=== PATIENT | female | born 1965 | race Hispanic/Latino ===

== ENCOUNTER → 2021-11-04 | Outpatient (CLI) | payer OTHER | END | disposition home or self-care (01) | LOC: RAH 07:51 | PROVIDERS: ATTEND Internal Medicine Gastroenterology | DX: K70.30 Alcoholic cirrhosis of liver without ascites (principal); R93.3 Abnormal findings on diagnostic imaging of other parts of digestive tract | CPT/HCPCS: 76700; 93975 ==

== ENCOUNTER → 2022-02-04 | Outpatient (CLI) | payer OTHER | END | disposition home or self-care (01) | LOC: RAH 07:56 | PROVIDERS: ATTEND Internal Medicine Gastroenterology | DX: K70.30 Alcoholic cirrhosis of liver without ascites (principal) | CPT/HCPCS: 76700 ==

== ENCOUNTER 2024-09-11 07:01 | Day surgery (SDC) | payer MEDICARE ==
[~2024-09-11] VITALS: Ht 167.6 cm; Wt 90.7 kg
[2024-09-11] VITALS (10 sets, daily range): BP systolic 89–123; BP diastolic 53–65; PULSE 63–69; RESP 14–18; TEMP 97.1–97.6
[2024-09-11] MEDS: 0.9%NACL 1000ML 1,000 ML IV ONE (09:10)
[2024-09-11] MEDS ORDERED: SUCR1TAB2 PO (09:47)
[2024-09-11] MEDS ORDERED: BUPR75TA8 PO (09:47)
[2024-09-11] MEDS ORDERED: TRAZ-187 PO (09:47)
[2024-09-11] MEDS ORDERED: RIFA550T PO (09:47)
[2024-09-11] MEDS ORDERED: ONDA-243 PO (09:47)
[2024-09-11] MEDS ORDERED: ALBU18HF7 IH (09:47)
[2024-09-11] MEDS ORDERED: FURO40TA5 PO (09:47)
[2024-09-11] MEDS ORDERED: URSO250T12 PO (09:47)
[2024-09-11] MEDS ORDERED: OMEP40CA21 PO (09:47)
[2024-09-11] MEDS ORDERED: LEVO150C5 PO (09:47)
[2024-09-11] MEDS ORDERED: HYDR50SO PO (09:47)
[2024-09-11] MEDS ORDERED: TIRZ2.5P SQ (09:47)
[2024-09-11] MEDS ORDERED: FLUT15.845 NS (09:47)
[2024-09-11] MEDS ORDERED: SERT-440 PO (09:47)
[2024-09-11] MEDS ORDERED: PARO-37 PO (09:47)
[2024-09-11] MEDS ORDERED: FOLIC ACID PO (09:47)
[2024-09-11] MEDS ORDERED: NORT10CA2 PO (09:47)
[2024-09-11] MEDS ORDERED: SPIR100T5 PO (09:47)
[2024-09-11] MEDS ORDERED: proPOFol 10 MG/ML 20ML VIAL IV ONE (10:01)
[2024-09-12] MEDS ORDERED: CEPH500B PO (09:22)
== END 2024-09-11 11:15 | disposition home or self-care (01) ==
LOC: DAH 07:01
PROVIDERS: ATTEND Internal Medicine Gastroenterology
DX: K74.3 Primary biliary cirrhosis (principal); K76.6 Portal hypertension; I85.00 Esophageal varices without bleeding; K31.89 Other diseases of stomach and duodenum; K29.50 Unspecified chronic gastritis without bleeding; K22.2 Esophageal obstruction; K31.7 Polyp of stomach and duodenum; K72.90 Hepatic failure, unspecified without coma; K30 Functional dyspepsia; E11.9 Type 2 diabetes mellitus without complications; E03.9 Hypothyroidism, unspecified; F41.9 Anxiety disorder, unspecified; Z86.2 Personal history of diseases of the blood and blood-forming organs and certain disorders involving the immune mechanism; Z79.899 Other long term (current) drug therapy; Z90.710 Acquired absence of both cervix and uterus; Z98.891 History of uterine scar from previous surgery
CPT/HCPCS: 82948 ×2; 43239; 43251; J7030; J2704; A4620; A4215 ×2; A4223; A4222; A4221; A4663; A4606; J3490

== ENCOUNTER 2024-09-12 04:17 | Emergency (ER) | payer MEDICARE, MEDICAID ==
[~2024-09-12] VITALS: Ht 167.6 cm; Wt 90.7 kg
[~2024-09-12 04:17] MED LIST: ALBU18HF7 IH; BUPR75TA8 PO; FLUT15.845 NS; FOLIC ACID PO; FURO40TA5 PO; HYDR50SO PO; LEVO150C5 PO; NORT10CA2 PO; OMEP40CA21 PO; ONDA-243 PO; PARO-37 PO; RIFA550T PO; SERT-440 PO; SPIR100T5 PO; SUCR1TAB2 PO; TIRZ2.5P SQ; TRAZ-187 PO; URSO250T12 PO
--- NOTE | 2024-09-12 05:11 | ERN ---
General Chief Complaint: Abdominal Pain Stated Complaint: C/O ABD PAIN WITH N X V Time Seen by MD: 05:05 History of Present Illness Initial Comments Patient is a 59-year-old female who had an EGD yesterday morning and has since then had pain nausea and vomiting. In addition she has chills and has not passed any gas since the procedure. Timing/Duration: 4-6 hours Allergies: Coded Allergies: No Known Drug Allergies (Unverified Allergy, Unknown, 09/04/24) Home Meds Reported Medications Tirzepatide (Mounjaro) 2.5 Mg/0.5 Ml Pen.injctr, 2.5 MG SQ QWEEK 09/11/24 Trazodone HCl (Trazodone HCl) 100 Mg Tablet, 100 MG PO HS, TAB 09/11/24 Ondansetron (Ondansetron Odt) 4 Mg Tab.rapdis, 4 MG PO AD, TAB 09/11/24 Levothyroxine Sodium (Levothyroxine) 150 Mcg Capsule, 150 MCG PO DAILY, CAP 09/11/24 Spironolactone (Spironolactone) 100 Mg Tablet, 100 MG PO DAILY, TAB 09/11/24 [Folic Acid] No Conflict Check, 1 MG PO DAILY 09/11/24 Rifaximin (Xifaxan) 550 Mg Tablet, 550 MG PO BID, TAB 09/11/24 Furosemide (Furosemide) 40 Mg Tablet, 40 MG PO DAILY, TAB 09/11/24 Hydroxyzine HCl (Hydroxyzine HCl) 50 Mg/25 Ml Syrup, 50 MG PO HS, ML 09/11/24 Nortriptyline HCl (Nortriptyline HCl) 10 Mg Capsule, 10 MG PO HS, CAP 09/11/24 Omeprazole (Omeprazole) 40 Mg Capsule.dr, 40 MG PO DAILY, CAP 09/11/24 Sertraline HCl (Sertraline HCl) 100 Mg Tablet, 100 MG PO HS, TAB 09/11/24 Ursodiol (Ursodiol) 250 Mg Tablet, 250 MG PO DAILY, TAB 09/11/24 Paroxetine HCl (Paroxetine HCl) 20 Mg Tablet, 20 MG PO DAILY, TAB 09/11/24 Albuterol Sulfate (Ventolin Hfa) 90 Mcg Hfa.aer.ad, 2 PUFF IH DAILYBKFST PRN for wheezing for 30 Days, #18 GM 0 Refills 09/11/24 Fluticasone Propionate (Fluticasone Propionate) 50 Mcg/Actuation [place].susp, 2 SPRAY NS DAILY, #16 GM 0 Refills 09/11/24 Bupropion HCl (Bupropion HCl) 75 Mg Tablet, 75 MG PO BID, TAB 09/11/24 Sucralfate (Sucralfate) 1 Gram Tablet, 1 GM PO TID, TAB 09/11/24 Past Medical History Past Medical History: Anemia, Diabetes-Type II, Hypertension, Other Medical History Other: CIRRHOSIS OF LIVER Past Surgical History: Other Constitutional: (+) chills EENTM: (-) eye pain, (-) blurred vision, (-) tearing, (-) double vision, (-) ear pain, (-) ear discharge, (-) nose pain, (-) nose congestion, (-) throat pain, (-) Throat swelling, (-) mouth pain, (-) tooth pain, (-) mouth swelling, (-) other documentation Respiratory: (-) cough, (-) orthopnea, (-) short of breath, (-) stridor, (-) wheezing, (-) other documentation Cardiovascular: (-) chest pain, (-) edema, (-) palpitations, (-) syncope, (-) dyspnea on exertion, (-) other documentation Gastrointestinal/Abdominal: (+) nausea, (+) vomiting Musculoskeletal: (-) Neck pain, (-) back pain, (-) Flank Pain, (-) joint pain, (-) joint swelling, (-) muscle pain, (-) muscle stiffness, (-) gout, (-) other documentation Skin: (-) laceration, (-) contusion, (-) abrasion, (-) abscess, (-) rash, (-) change in color, (-) change in hair, (-) change in nails, (-) diaphoresis, (-) dryness, (-) other documentation Physical Exam Physical Exam Dictation Patient is sitting on the edge of the bed clutching her stomach and crying with visible tears. General Appearance: (+) moderate distress Orientation: (+) alert Eye: bilateral eye normal inspection, bilateral eye PERRL, bilateral eye EOMI Ear, Nose, Throat: (+) hearing grossly normal, (+) normal ENT inspection, (+) moist mucous membraine Neck: (+) normal inspection, (+) supple, (+) no JVD Respiratory: (+) chest non-tender, (+) lungs clear, (+) well ventilated Heart: (+) no gallop, (+) tachycardia Vascular: (+) no edema, (+) normal peripheral pulse Gastrointestinal: (+) soft, (+) distended, (+) tender, (+) bowel sound absent Results Laboratory and Microbiology Lab and Micro Result Laboratory Tests Test 09/12/24 04:49 09/12/24 05:15 White Blood Count 7.8 K/uL (4.8-10.8) Red Blood Count 4.01 MIL/uL (4.00-5.50) Hemoglobin 11.3 g/dL (12.0-16.0) L Hematocrit 34.8 % (36-48) L Mean Corpuscular Volume 86.8 fL (79-99) Mean Corpuscular Hemoglobin 28.2 pg (27.0-33.0) Mean Corpuscular Hemoglobin Concent 32.5 g/dL (32.0-36.0) Red Cell Distribution Width 15.8 % (11.0-15.5) H Platelet Count 165 K/uL (130-400) Mean Platelet Volume 10.8 fL (7.5-10.5) H Immature Granulocyte % (Auto) 0.3 % (0-1) Neutrophils (%) (Auto) 80.6 % (40.0-77.0) H Lymphocytes (%) (Auto) 13.6 % (21.0-51.0) L Monocytes (%) (Auto) 4.7 % (3.0-13.0) Eosinophils (%) (Auto) 0.3 % (0.0-8.0) Basophils (%) (Auto) 0.5 % (0.0-5.0) Neutrophils # (Auto) 6.3 K/uL (1.8-7.7) Lymphocytes # (Auto) 1.1 K/uL (1.0-4.8) Monocytes # (Auto) 0.4 K/uL (0.1-1.0) Eosinophils # (Auto) 0.02 K/uL (0.00-0.70) Basophils # (Auto) 0.04 K/uL (0.00-0.20) Absolute Immature Granulocyte (auto 0.02 K/uL (0-1) Nucleated Red Blood Cells 0.0 % (0.0-0.19) Sodium Level 137 mmol/L (136-145) Potassium Level 4.1 mmol/L (3.5-5.1) Chloride Level 101 mmol/L (101-111) Carbon Dioxide Level 23 mmol/L (21-32) Blood Urea Nitrogen 11 mg/dL (7-18) Creatinine 0.8 mg/dL (0.5-1.0) Glomerular Filtration Rate Calc 84 mL/min (>90) Random Glucose 111 mg/dL (70-105) H Total Calcium 9.3 mg/dL (8.5-10.1) Total Bilirubin 1.0 mg/dL (0.2-1.0) Aspartate Amino Transf (AST/SGOT) 44 U/L (10-37) H Alanine Aminotransferase (ALT/SGPT) 24 U/L (12-78) Alkaline Phosphatase 163 U/L (50-136) H Total Protein 9.5 g/dL (6.0-8.3) H Albumin 3.9 g/dL (3.5-5.0) Urine Color LIGHT-YELLOW (YELLOW) Urine Appearance CLEAR (CLEAR) Urine pH 8.0 (5.0-8.0) Urine Specific [place] 1.016 (1.001-1.031) Urine Protein NEGATIVE mg/dL (NEGATIVE) Urine Glucose (UA) NEGATIVE mg/dL (NEGATIVE) Urine Ketones NEGATIVE mg/dL (NEGATIVE) Urine Occult Blood NEGATIVE (NEGATIVE) Urine Nitrate NEGATIVE (NEGATIVE) Urine Bilirubin NEGATIVE mg/dL (NEGATIVE) Urine Urobilinogen 0.2 mg/dL (0.2-1.0) Urine Leukocyte Esterase 75 Sandra/uL (NEGATIVE) H Urine RBC 0-1 /HPF (0-1) Urine WBC 6-10 /HPF (0-1) H Urine Squamous Epithelial Cells MOD /HPF (0-2) Urine Bacteria RARE /HPF (None Seen) Labs Reviewed?: Yes EKG/XRAY/US/CT/MRI CT Scan Comment [facility] [address] [place], [place] [id number] IMAGING REPORT Signed PATIENT: JALEN BENOIT MR#: [id number] : 1965 SEX: F AGE: 59 LOCATION: [facility] ORDER 5 STATUS: REG REPORT#: [id number] SERVICE 4 REASON: pain post EGD ORDERING PHYSICIAN: ATUL SCHAEFER MD PROCEDURE: ABD PEL W - CT ABDOMEN/PELVIS W/CONTRAST CT ABDOMEN/PELVIS W/CONTRAST HISTORY: Post EGD pain COMPARISON: None TECHNIQUE: Multiple sequential axial images of the abdomen and pelvis were obtained from the dome of the diaphragm through symphysis pubis. Patient was not given contrast through intravenous route. Oral contrast was not given. FINDINGS: No pleural effusion is seen bilaterally. There is no evidence of parenchymal disease or pulmonary nodule of the visualized lower lungs. Degenerative changes of the thoracolumbar spine are present. The heart is not enlarged. Cirrhotic changes of the liver are noted. Liver is enlarged measuring 19 cm. Spleen is enlarged measuring 15 cm nodular appearance of liver is seen. There are abdominal varices. Gallbladder wall is mildly thickened. There is gastric wall thickening may be related to underlying portal hypertension versus gastritis. There are mild small bowel dilatation with wall thickening. The liver, spleen, adrenal glands and pancreas are unremarkable. There is no evidence of hydronephrosis bilaterally. No evidence of renal stone is seen. Fecal material is seen in the colon. There are normal size retroperitoneal and mesenteric lymph nodes. Tiny ascites is seen. Atherosclerotic changes are present. Uterus has been Pelvic sidewalls are symmetric bilaterally. Bladder is well distended without wall thickening. IMPRESSION: 1. Cirrhotic liver. Hepatosplenomegaly. Abdominal varices. Findings may be related to portal hypertension. There are gallbladder wall thickening, gastric wall thickening and small bowel wall thickening may be related to poor ejection. Clinical correlation is tiny ascites is seen. CT was performed with one or more following dose reduction techniques: automated exposure control, adjustment of the mA and kv according to patient's size, or use of a iterative reconstruction technique. DICTATED BY: PETER MENESES MD DATE: 09/12/2434 ELECTRONICALLY SIGNED BY: PETER MENESES MD DATE: 09/12/24841 [facility] Patient's abdominal pain right after an EGD could be due to over insufflation, abdominal perforation, coincidental UTI, stomach bug, heartburn. I will start with a chemistry panel, CBC, UA, upright KUB. I may need to do a CT abdomen. Also will give her some pain medications. KUB was unrevealing there are no large distended loops of bowel in the stomach is decompressed. Therefore something else besides residual air must be causing patient's pain. I will order a CT scan of her abdomen and pelvis with IV contrast. Of note patient also has UTI. I will give her a single dose of Zosyn to cover any potential abdominal catastrophe. MDM: Differential diagnosis: Rationale: Tests considered and ordered secondary to shared decision making include: Previous outside records reviewed: Old ER visits. Risk of complication and/or morbidity or mortality of patient management: None Patient is a 59-year-old female coming in to be evaluated for abdominal discomfort and nauseousness. Patient does has a history of liver cirrhosis laboratory workup disclose a urinary tract infection. CT of the abdomen disclose liver cirrhosis which patient was aware of. Patient has felt much better since being in [place]. She states that the fluids and the medication that has helped her. Patient will be discharged in stable condition with a diagnosis of history of liver cirrhosis and UTI. ED Course Orders Procedure Category Date Status Time Abd 1vw RAD 09/12/24 Taken 05:05 12 Lead Ekg Tracing- EKG 09/12/24 Complete Technical 05:05 Cbc With Differential LAB 09/12/24 Complete 05:05 Comprehensive LAB 09/12/24 Complete Metabolic Panel 05:05 Urinalysis Profile LAB 09/12/24 Complete 05:05 Ketorolac PHA 09/12/24 Complete Tromethamine 30mg/Ml 05:30 Culture Urine RONDA 09/12/24 In Process 05:30 Ct Abdomen/Pelvis CT 09/12/24 Resulted W/Contrast 06:25 Iohexol (Omnipaque) PHA 09/12/24 Complete 06:47 Zosyn 3.375gm+Ns 50ml PHA 09/12/24 Complete (Zosyn 3.375gm+Ns 07:30 Current Medications Medications (Trade) Dose Ordered Sig/Mayra Route PRN Reason Start Time Stop Time Status Last Admin Dose Admin Iohexol (Omnipaque) 35,000 mg STK-MED ONCE IV 09/12/24 06:47 09/12/24 06:47 DC Ketorolac Tromethamine (toRADol) 30 mg ONCE ONCE IVP 09/12/24 05:30 09/12/24 05:31 DC 09/12/24 05:30 Piperacillin Sod/ Tazobactam Sod (Zosyn 3.375gm+NS 50ml) 3.375 gm ONCE ONCE IV 09/12/24 07:30 09/12/24 07:31 DC 09/12/24 07:21 Vital Signs Date Time Temp Pulse Resp B/P (MAP) Pulse Ox O2 Delivery O2 Flow Rate FiO2 09/12/24 06:35 66 18 125/67 98 Room Air* 0 21 09/12/24 05:50 68 18 112/53 98 Room Air* 0 09/12/24 04:33 98.2 74 18 134/68 98 Room Air* 0 09/12/24 04:19 99.3 72 20 125/89 100 Room Air DX & DISP Disposition: Discharge Departure Impression: Primary Impression: Liver cirrhosis Additional Impression: UTI (urinary tract infection) Condition: Stable Scripts Cephalexin Monohydrate (Keflex) 500 Mg Cap 1 CAP PO BID for 10 Days, #20 CAP 0 Refills Prov: ESTHER YU MD 09/12/24 Additional Instructions: FOLLOW-UP WITH PRIMARY CARE PROVIDER IN 1 TO 2 DAYS. TAKE MEDICATIONS DIRECTED HERE IN THE EMERGENCY ROOM. OKAY TO CONTINUE HOME MEDICATIONS UNLESS OTHERWISE DISCUSSED DURING YOUR VISIT IN THE EMERGENCY ROOM TODAY. RETURN TO YOUR NEAREST EMERGENCY ROOM IF SYMPTOMS WORSEN OR IF THERE IS NO IMPROVEMENT. CALL 911 IF YOU NEED IMMEDIATE ASSISTANCE. TAKE TYLENOL [id number] NEEDED AND IF NO CONTRAINDICATIONS ARE PRESENT. INCREASE ORAL HYDRATION. A WOUND CULTURE OR URINE CULTURE WAS ORDERED HERE IN THE EMERGENCY ROOM DEPARTMENT PLEASE FOLLOW-UP WITH PRIMARY CARE PROVIDER AND ADVISE THEM TO GET REPEAT PORTS FROM OUR FACILITY. IF YOU HAD ANY RINA WRAP/SPLINTS THAT WERE APPLIED HERE, PLEASE DO NOT REMOVE THEM UNTIL YOU SEE YOUR PRIMARY CARE OR SPECIALTY. Referrals: Referrals: PARISH AVELAR MD (PCP) Time of Disposition: 09:22 ATUL SCHAEFER MD September 12, 2024 05:11 ESTHER YU MD September 12, 2024 09:09
[2024-09-12 05:16] LABS: BASOPHILS # (AUTO) 0.04 K/uL (0.00-0.20); BASOPHILS % (AUTO) 0.5 % (0.0-5.0); EOSINOPHILS # (AUTO) 0.02 K/uL (0.00-0.70); EOSINOPHILS % (AUTO) 0.3 % (0.0-8.0); HEMATOCRIT 34.8 % (36-48); IMMATURE GRANULOCYTE ABSOLUTE 0.02 K/uL (0-1); LYMPHOCYTES # (AUTO) 1.1 K/uL (1.0-4.8); LYMPHOCYTES % (AUTO) 13.6 % (21.0-51.0); MEAN CORPUSCULAR HEMOGLOBIN 28.2 pg (27.0-33.0); MEAN CORPUSCULAR HGB CONC 32.5 g/dL (32.0-36.0); MEAN CORPUSCULAR VOLUME 86.8 fL (79-99); MONOCYTES # (AUTO) 0.4 K/uL (0.1-1.0); MONOCYTES % (AUTO) 4.7 % (3.0-13.0); NEUTROPHILS # (AUTO) 6.3 K/uL (1.8-7.7); NEUTROPHILS % (AUTO) 80.6 % (40.0-77.0); PLATELET COUNT (AUTO) 165 K/uL (130-400); RED BLOOD CELL COUNT(AUTO) 4.01 MIL/uL (4.00-5.50); RED CELL DISTRIBUTION WIDTH 15.8 % (11.0-15.5); WHITE BLOOD COUNT (AUTO) 7.8 K/uL (4.8-10.8)
[2024-09-12 05:29] LABS: APPEARANCE,URINE CLEAR (CLEAR); BILIRUBIN,URINE NEGATIVE (NEGATIVE); COLOR,URINE LIGHT-YELLOW (YELLOW); GLUCOSE, URINE (UA) NEGATIVE (NEGATIVE); KETONES,URINE NEGATIVE (NEGATIVE); LEUKOCYTE ESTERASE ,URINE 75 Leu/uL (NEGATIVE); NITRATE,URINE NEGATIVE (NEGATIVE); OCCULT BLOOD,URINE NEGATIVE (NEGATIVE); PROTEIN,URINE NEGATIVE (NEGATIVE); UROBILINOGEN,URINE 0.2 mg/dL (0.2-1.0)
[2024-09-12 05:30] LABS: ADD UA MICROSCOPIC YES
[2024-09-12] MEDS: ketOROlac 30MG VIAL (30MG/ML) IVP ONE (05:30)
[2024-09-12 05:31] LABS: BACTERIA,URINE RARE /HPF (None Seen); MUCUS,URINE RARE LPF (None Seen); RBC,URINE 0-1 /HPF (0-1); SQUAMOUS EPITHELIAL CELL,UR MOD /HPF (0-2)
[2024-09-12 05:39] LABS: ALBUMIN 3.9 g/dL (3.5-5.0); CREATININE 0.8 mg/dL (0.5-1.0); POTASSIUM 4.1 mmol/L (3.5-5.1); TOTAL PROTEIN, SERUM 9.5 g/dL (6.0-8.3)
--- NOTE | 2024-09-12 06:43 | EKG ---
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
[2024-09-12] MEDS ORDERED: IOHEXOL 350 MG/ML 100ML INFUS..BTL IV ONE (06:47)
--- NOTE | 2024-09-12 07:10 | NUR ---
REPORT GIVEN TO KRISTEN RN AT THIS TIME
--- NOTE | 2024-09-12 07:10 | NUR ---
SBAR REPORT RECIEVED FROM MARIA DEL ROSARIO, PT IS AAOX4 NO DISTRESS, DAUGHTER AT BEDSIDE, PT STATES ABD PAIN IS NOW 0/10, PT RESTING COMFORTABLY
[2024-09-12] MEDS: ZOSYN 3.375GM +NS 50ML IV ONE (07:21)
--- NOTE | 2024-09-12 08:42 | HMCIMG ---
CT ABDOMEN/PELVIS W/CONTRAST HISTORY: Post EGD pain COMPARISON: None TECHNIQUE: Multiple sequential axial images of the abdomen and pelvis were obtained from the dome of the diaphragm through symphysis pubis. Patient was not given contrast through intravenous route. Oral contrast was not given. FINDINGS: No pleural effusion is seen bilaterally. There is no evidence of parenchymal disease or pulmonary nodule of the visualized lower lungs. Degenerative changes of the thoracolumbar spine are present. The heart is not enlarged. Cirrhotic changes of the liver are noted. Liver is enlarged measuring 19 cm. Spleen is enlarged measuring 15 cm nodular appearance of liver is seen. There are abdominal varices. Gallbladder wall is mildly thickened. There is gastric wall thickening may be related to underlying portal hypertension versus gastritis. There are mild small bowel dilatation with wall thickening. The liver, spleen, adrenal glands and pancreas are unremarkable. There is no evidence of hydronephrosis bilaterally. No evidence of renal stone is seen. Fecal material is seen in the colon. There are normal size retroperitoneal and mesenteric lymph nodes. Tiny ascites is seen. Atherosclerotic changes are present. Uterus has been Pelvic sidewalls are symmetric bilaterally. Bladder is well distended without wall thickening. IMPRESSION: 1. Cirrhotic liver. Hepatosplenomegaly. Abdominal varices. Findings may be related to portal hypertension. There are gallbladder wall thickening, gastric wall thickening and small bowel wall thickening may be related to poor ejection. Clinical correlation is tiny ascites is seen. CT was performed with one or more following dose reduction techniques: automated exposure control, adjustment of the mA and kv according to patient's size, or use of a iterative reconstruction technique.
[2024-09-12] MEDS ORDERED: CEPH500B PO (09:22)
--- NOTE | 2024-09-12 09:26 | HMCIMG ---
ABD 1VW HISTORY: Pain COMPARISON: None FINDINGS: A frontal projection of the abdomen was obtained. Mild small bowel dilatation is seen Fecal material is seen in the colon. Degenerative changes of the thoracolumbar spine are noted. IMPRESSION: 1. Mild small bowel dilatation.
[2024-09-12 09:30] VITALS: BP 112/53; PULSE 70; RESP 18; TEMP 98.2; O2SAT 100
== END 2024-09-12 09:41 | disposition home or self-care (01) ==
LOC: EDH 04:17
DX: N39.0 Urinary tract infection, site not specified (principal); K74.60 Unspecified cirrhosis of liver; E11.9 Type 2 diabetes mellitus without complications; I10 Essential (primary) hypertension; Z79.85 Long-term (current) use of injectable non-insulin antidiabetic drugs; Z79.890 Hormone replacement therapy; Z79.899 Other long term (current) drug therapy; Z98.890 Other specified postprocedural states
CPT/HCPCS: 99285; 74177; 96365; 96366; 96375; 80053; 85025; 87086; 81001; 36415; 74018; 93005; J1885; J2543; Q9967